=== PATIENT | female | born 1960 | race Caucasian/White ===

== ENCOUNTER 2018-06-08 07:18 | Day surgery (SDC) | payer MEDICAID, SELFPAY ==
[2018-06-08] VITALS (17 sets, daily range): BP systolic 143–191; BP diastolic 80–102; PULSE 80–93; RESP 16–18; TEMP 36.4; O2SAT 88–99; BMI 24.7
--- NOTE | 2018-06-08 07:20 | IR_ITS ---
CARDIAC CATHETERIZATION DATE OF CATHETERIZATION:06/08/2018 9:17 AM PROCEDURES: 1. Right heart catheterization 2. Left heart catheterization 3. Left ventriculogram 4. Selective coronary angiogram 5. Selective engagement of the saphenous vein graft to the circumflex artery and right coronary artery 6. Selective engagement of the left internal mammary artery to the LAD 7. Drug-eluting stent deployment to the proximal right coronary artery INDICATION FOR TEST: 1. Angina pectoris 2. Coronary artery disease 3. History of coronary artery bypass surgery 4. Severe COPD 5. Congestive heart failure 6. Pulmonary hypertension Informed consent was obtained prior to the procedure. COMPLICATIONS: None ESTIMATED BLOOD LOSS: Less than 10 ml. TECHNIQUE: One percent lidocaine was used to anesthetize the right groin. The right femoral artery was accessed via the Seldinger technique. A 4-Nauruan and 7 bulgarian sheath was placed in the right femoral artery and vein respectfully. A 7 Nauruan sheath was introduced and a [place]-Timur catheter was floated using hemodynamic waveforms in the pulmonary artery, right ventricle , and right atrium. Saturations were obtained in the pulmonary artery and the right atrium. The JR-4 and JL-4 catheter was also used to perform left heart catheterization, left ventriculography and selective coronary angiogram. At the end of the diagnostic angiogram a 4 Nauruan sheath was exchanged for a 6 Nauruan sheath and a therapeutic dose of heparin was administered. A JR4 guide catheter was used intubate the right coronary artery and a BMW wire was used to traverse the stenosis. A 3 mm x 22 mm resolute Dipak stent was deployed at 20 roberta reducing the severe stenosis to 0%. Following this a noncompliant 3.5 x 20 mm balloon was deployed at 20 roberta to post dilate. SANJEEV-3 flow was present before and after the procedure. Closing ACT 290 seconds at the end of the procedure the apparatus was removed the groin is reprepped closure changed sheath was removed good hemostasis was achieved using Perclose device patient transferred the postop holding area in stable condition The [place] right coronary artery was a large vessel which supplied an unbypassed large posterior lateral ventricular branch. Although the posterior descending artery was supplied by the saphenous vein graft to the proximal portion of the posterior descending artery was occluded with no retrograde backfilling of the large unbypassed posterior lateral ventricular branch ANGIOGRAPHIC RESULTS: The left main artery has an ostial 20-30% stenosis The left anterior descending artery has proximal 80% stenoses and then occluded after a subtotally occluded first diagonal artery The circumflex artery is non dominant and has proximal and mid vessel long diffuse 80% stenoses which extend into the first obtuse marginal artery. After the first obtuse marginal artery the circumflex artery is occluded The right coronary artery is a dominant vessel and has proximal 80-90% stenoses. This fills a large posterior lateral ventricular branch. The posterior descending artery is ostially occluded with no antegrade flow or retrograde flow from the saphenous vein graft supplying the posterior descending artery The THOMAS ventriculogram reveals preserved ejection fraction estimated at 55% The left ventricular end-diastolic pressure 30 mmHg The left internal mammary artery is a widely patent graft and anastomoses onto the mid LAD. The LAD itself is a small caliber vessel. Distally the vessels are small and do not supply the apex The saphenous vein graft to the first diagonal artery is a widely patent conduit with no atherosclerotic plaque. Graft then skips over to the posterior descending artery. This second limb of the graft is also widely patent and
[2018-06-08 08:31] LABS: Basophils % 0.1 % (0.1-2.0); Eosinophils # 0.1 K/mm3 (0.0-0.4); Hematocrit 30.2 % (37.0-47.0); Hemoglobin 9.9 g/dL (12.2-16.2); Lymphocytes # 2.4 K/mm3 (0.7-4.5); Lymphocytes % 16.6 K/mm3 (10-50); Mean Corpuscular HGB Conc 32.9 g/dL (31.8-35.4); Mean Corpuscular Volume 97.4 fl (81-99); Mean Platelet Volume 6.9 fl (7.4-10.4); Monocytes # 0.6 K/mm3 (0.1-1.0); Monocytes % 4.3 % (1.7-9.3); Neutrophils # 11.4 K/mm3 (1.8-7.8); Neutrophils % 78.1 % (37.0-80.0); Platelet Count 341 K/mm3 (142-424); Red Blood Count 3.09 M/mm3 (4.20-5.40); Red Cell Distribution Width 15.5 % (11.5-17.5); White Blood Count 14.6 K/mm3 (4.8-10.8)
[2018-06-08 08:37] LABS: Anion Gap 11.2 mEq/L (5-15); Blood Urea Nitrogen 22 mg/dL (7-18); Carbon Dioxide 32 mmol/L (21.0-32.0); Chloride 92 mmol/L (98-107); Creatinine Clearance Estimated 53 mL/min (0-300); Creatinine,Serum 1.24 mg/dL (0.55-1.02); Estimated Glomerular Filt Rate 45 ml/min (>60); GFR (African American) 54 ML/MIN (>60); Glucose 86 mg/dL (74-106); Potassium 4.2 mmoL/L (3.5-5.1); Sodium 131 mmol/L (136-145)
[2018-06-08 13:16] LABS: CATHL Venous O2 SAT 80.4 % (75-80)
[2018-06-08 13:17] LABS: CATHL Activated Clotting Time 290 SEC (74-125)
== END 2018-06-08 14:17 | disposition home or self-care (01) ==
LOC: CATHLAB 07:20
PROVIDERS: PCP Family Medicine; Visit Provider Internal Medicine
DX: I25.110 Atherosclerotic heart disease of native coronary artery with unstable angina pectoris (principal); Z95.1 Presence of aortocoronary bypass graft; I25.700 Atherosclerosis of coronary artery bypass graft(s), unspecified, with unstable angina pectoris; I50.30 Unspecified diastolic (congestive) heart failure; J44.9 Chronic obstructive pulmonary disease, unspecified; I27.20 Pulmonary hypertension, unspecified; Z79.899 Other long term (current) drug therapy; Z72.0 Tobacco use; I25.2 Old myocardial infarction; E11.9 Type 2 diabetes mellitus without complications; I11.0 Hypertensive heart disease with heart failure; Z95.5 Presence of coronary angioplasty implant and graft; Z79.82 Long term (current) use of aspirin
CPT/HCPCS: 80048; 82810; 85025; 85347; 92928; 93461; C1725; C1760; C1769; C1876; C1894; C9600; J1644; Q9967